=== PATIENT | female | born 1955 | race Caucasian/White ===

== ENCOUNTER 2018-05-08 17:59 | Emergency (ER) | payer OTHER ==
[~2018-05-08] VITALS: Ht 165.1 cm; Wt 69.4 kg
== END 2018-05-08 23:58 | disposition home or self-care (01) ==
LOC: ER 17:59
DX: S20.211A Contusion of right front wall of thorax, initial encounter (principal); S70.01XA Contusion of right hip, initial encounter; W18.39XA Other fall on same level, initial encounter; Y93.89 Activity, other specified; Y92.89 Other specified places as the place of occurrence of the external cause; Y99.8 Other external cause status

== ENCOUNTER 2018-06-09 20:49 | Emergency (ER) | payer OTHER ==
[~2018-06-09] VITALS: Ht 165.1 cm; Wt 68.0 kg
[2018-06-10] MEDS ORDERED: KETO10TA2 PO (04:01)
== END 2018-06-10 04:05 | disposition home or self-care (01) ==
LOC: ER 20:49
DX: R10.11 Right upper quadrant pain (principal); S30.1XXS Contusion of abdominal wall, sequela; W18.39XS Other fall on same level, sequela